=== PATIENT | male | born 1985 | race Caucasian/White ===

== ENCOUNTER 2019-07-08 11:08 | Outpatient (RCR) | payer OTHER, SELFPAY ==
--- NOTE | 2019-07-08 13:09 | PTOPEVAL ---
Thank you for referring this patient to [facility]. Please review, sign, date and return this plan of care [facility]. I agree with and certify that the following plan of care is medically necessary. Referring Physician Date Admitting Provider: Attending Provider: PHYSICIAN NOT ON STAFF Referring Provider: *PT Outpatient Evaluation Start: 07/08/19 11:27 Freq: Status: Active Protocol: Document 07/08/19 11:27 Viky (Rec: 07/08/19 11:55 [id number]) Therapy Assessment Status Assessment Status Assessment Status Evaluation Outpatient Past Medical History Past Medical History Reason Unable to Obtain see patient intake form Evaluation Information Problem Diagnosis neck pain Onset 06/24/19 Additional Evaluation Detail ndi = Subjective Information patient reports he has been Query Text:As Reported By Patient/ having pain in the neck for Family over a year. he reports the pain began one day at work. he reports he blew a disc in his neck. he reports he had surgery on the neck on . he reports the surgery did help, but reports he is lhaving symptoms still in the R shoulder, arm, neck, and upper back. he reports he is not back to work. he reports he is on no restrictions as of this date. Prior Level of Function Comments Additional Prior Level of Function he reports no NTB in the R arm Comments this date. he reports a history of this prior to his surgery. 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 Pain Assessment Timing of Pain Assessment Timing of Pain Assessment Assessment Pain Scale Pain Scale Used Numeric (1 - 10) Self Report Pain Assessment Right Arm(s) Reported Pain Level 2 Right Shoulder(s) Reported Pain Level 3 Right Neck Reported Pain Level 1 Pain Score Pain Score 1,3,2: Self Report Additional Pain Score Comments patient is on several anxiety meds. patient is unsure of any narcotic pain medications, but he is unsure of all of the pills he is taking. 2 tylenol 3x daily. Cervical and Lumbar R
--- NOTE | 2019-07-08 13:38 | PTOPEVAL ---
Thank you for referring this patient to [facility]. Please review, sign, date and return this plan of care [facility]. I agree with and certify that the following plan of care is medically necessary. Referring Physician Date Admitting Provider: Attending Provider: PHYSICIAN NOT ON STAFF Referring Provider: *PT Outpatient Evaluation Start: 07/08/19 11:27 Freq: Status: Active Protocol: Document 07/08/19 11:27 Viky (Rec: 07/08/19 11:55 [id number]) Therapy Assessment Status Assessment Status Assessment Status Evaluation Outpatient Past Medical History Past Medical History Reason Unable to Obtain see patient intake form Evaluation Information Problem Diagnosis neck pain Onset 06/24/19 Additional Evaluation Detail ndi = Subjective Information patient reports he has been Query Text:As Reported By Patient/ having pain in the neck for Family over a year. he reports the pain began one day at work. he reports he blew a disc in his neck. he reports he had surgery on the neck on . he reports the surgery did help, but reports he is lhaving symptoms still in the R shoulder, arm, neck, and upper back. he reports he is not back to work. he reports he is on no restrictions as of this date. Prior Level of Function Comments Additional Prior Level of Function he reports no NTB in the R arm Comments this date. he reports a history of this prior to his surgery. 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 Pain Assessment Timing of Pain Assessment Timing of Pain Assessment Assessment Pain Scale Pain Scale Used Numeric (1 - 10) Self Report Pain Assessment Right Arm(s) Reported Pain Level 2 Right Shoulder(s) Reported Pain Level 3 Right Neck Reported Pain Level 1 Pain Score Pain Score 1,3,2: Self Report Additional Pain Score Comments patient is on several anxiety meds. patient is unsure of any narcotic pain medications, but he is unsure of all of the pills he is taking. 2 tylenol 3x daily. Cervical and Lumbar R
--- NOTE | 2019-09-14 11:17 | PCPTNOTE ---
Called patient and left message for him to call us back if he wants to come back to therapy. Patient has not been seen since Jul 07. LJ
== END 2019-07-08 11:09 | disposition home or self-care (01) ==
LOC: CHSPT 11:08
DX: M54.12 Radiculopathy, cervical region (principal); M54.2 Cervicalgia
CPT/HCPCS: 97014; 97110; 97161; G0283